=== PATIENT | female | born 1945 | race Caucasian/White ===

== ENCOUNTER 2018-01-30 08:08 | Emergency (ER) | payer MEDICARE, OTHER ==
[~2018-01-30] VITALS: Ht 177.8 cm; Wt 91.0 kg
[2018-01-30] MEDS ORDERED: VERAPAMIL 2.5 MG/ML, 2ML IVPush ONE (08:10)
[2018-01-30] MEDS ORDERED: PLEASE ENTER ALLERGIES MC SCH (08:30)
[2018-01-30] MEDS ORDERED: SODIUM CHLORIDE FLUSH 10ML SYR IVF ONE (08:30)
[2018-01-30] MEDS ORDERED: POLY17PO5 PO (08:39)
[2018-01-30] MEDS ORDERED: DILT120C9 PO (08:39)
[2018-01-30] MEDS ORDERED: MECL-76 PO (08:39)
[2018-01-30] MEDS ORDERED: FURO20TA3 PO (08:39)
[2018-01-30] MEDS ORDERED: SITA100T PO (08:39)
[2018-01-30] MEDS ORDERED: LEVO50TA5 PO (08:39)
[2018-01-30] MEDS ORDERED: DILT360C26 PO (08:39)
[2018-01-30] MEDS ORDERED: METF500T4 PO (08:39)
[2018-01-30] MEDS ORDERED: CAND16TA2 PO (08:39)
[2018-01-30] MEDS ORDERED: FEXO60TA9 PO (08:39)
[2018-01-30] MEDS ORDERED: ATOR20TA9 PO (08:39)
[2018-01-30] MEDS ORDERED: APIX5TAB PO (08:39)
[2018-01-30] MEDS ORDERED: VERAPAMIL 2.5 MG/ML, 2ML ONE (08:47)
[2018-01-30 08:50] LABS: BASOPHILS # (AUTO) 0.04 x10^3/uL (0-0.1); BASOPHILS % (AUTO) 0 % (0-1); EOSINOPHILS % (AUTO) 2 % (1-7); LYMPHOCYTES # (AUTO) 1.37 x10^3/uL (1-3.4); LYMPHOCYTES % (AUTO) 16 % (22-44); MD NO; MEAN CORPUSCULAR HEMOGLOBIN 28.3 pg (27.0-34.8); MEAN CORPUSCULAR HGB CONC 33.4 g/dL (32.4-35.8); MEAN CORPUSCULAR VOLUME 84.8 fL (80-100); MEAN PLATELET VOLUME 7.6 fL (7.4-10.4); MONOCYTES # (AUTO) 0.83 x10^3/uL (0.2-0.8); MONOCYTES % (AUTO) 10 % (2-9); NEUTROPHILS # (AUTO) 6.12 x10^3/uL (1.8-6.8); NEUTROPHILS % (AUTO) 72 % (42-75); PLATELET COUNT 305 x10^3/uL (130-400); RED CELL DISTRIBUTION WIDTH 13.4 % (9.6-15.2)
[2018-01-30 09:01] LABS: ALBUMIN 3.8 g/dL (3.4-5.0); ANION GAP 10 mmol/L (5-15); CALCIUM 8.7 mg/dL (8.5-10.1); CHLORIDE 101 mmol/L (98-107)
[2018-01-30 09:05] LABS: T4 (THYROXINE) 11.7 mcg/dL (4.8-13.9); TROPONIN I < 0.015 ng/mL (0.000-0.045)
[2018-01-30] MEDS ORDERED: PROPOFOL 10 MG/ML, 20ML ONE (09:19)
[2018-01-30] MEDS ORDERED: MAGNESIUM SULFATE PMX 2GM/50ML 50 ML IV ONE (09:30)
[2018-01-30] MEDS ORDERED: PROPOFOL 10 MG/ML, 20ML IVPush ONE (09:30)
[2018-01-30 12:07] VITALS: BP 125/80
== END 2018-01-30 12:49 | disposition home or self-care (01) ==
LOC: ED 09:45
DX: I48.91 Unspecified atrial fibrillation (principal)
CPT/HCPCS: 36415; 71045; 80048; 82040; 83735; 83880; 84436; 84443; 84484; 85025; 92960; 93005; 96365; 96366; 99152; 99285; J3475